=== PATIENT | male | born 1990 | race Caucasian/White ===

== ENCOUNTER 2021-08-26 18:39 | Emergency (ER) | payer OTHER, SELFPAY ==
[2021-08-26 18:53] VITALS: BP 146/98; PULSE 88; RESP 15; TEMP 36.4; O2SAT 98; BMI 33.0
--- NOTE | 2021-08-26 18:57 | DI.RAD.S_ITS ---
PROCEDURE: XR CHEST 1V INDICATIONS: chest pain TECHNIQUE: One view of the chest was acquired. COMPARISON: None. FINDINGS: Surgical changes and devices: None. Lungs and pleura: Lungs are clear. No pleural effusions or pneumothorax. Mediastinum: Mediastinal contours appear normal. Heart size is normal. Bones and chest wall: No suspicious bony lesions. Overlying soft tissues appear unremarkable. IMPRESSION: No acute process. Dictated by: Elia Johnson M.D. on 08/26/2021 at 19:24 Approved by: Elia Johnson M.D. on 08/26/2021 at 19:24
[2021-08-26 19:18] LABS: Add Manual Diff / Slide Review NO; Basophils Absolute Auto 100 /uL (0-100); Eosinophils Absolute Auto 300 /uL (0-450); Eosinophils Percent Auto 3.6 % (2-4); Hematocrit 41.2 % (41-53); Hemoglobin 14.3 g/dL (13.5-17.5); Lymphocytes Absolute Auto 2800 /uL (1100-4500); Lymphocytes Percent Auto 33.5 % (25-40); Mean Corpuscular HGB Conc 34.7 % (30-36); Mean Corpuscular Hemoglobin 31.2 PG (26-34); Mean Corpuscular Volume 89.9 fL (80-100); Monocytes Absolute Auto 700 /uL (0-900); Monocytes Percent Auto 8.2 % (3-14); Neutrophils Absolute Auto 4500 /uL (1500-7000); Neutrophils Percent Auto 53.7 % (50-75); Platelet Count 331 X10^3/uL (150-400); Red Blood Cell Count 4.59 X10^6/uL (4.5-5.9); Red Cell Distribution Width 13.9 % (11.6-14.8); White Blood Cell Count 8.4 X10^3/uL (4.5-11.0)
[2021-08-26 19:41] LABS: Alanine Aminotransferase 52 IU/L (<50); Albumin Globulin Ratio 1.5 (1.0-2.8); Alkaline Phosphatase 60 U/L (38-126); Aspartate Aminotransferase 40 IU/L (17-59); BUN Creatinine Ratio 12.2 (6-22); Bilirubin Total 1.6 mg/dL (0.2-1.3); Blood Urea Nitrogen 11 mg/dL (9-20); Calcium 8.9 mg/dL (8.4-10.2); Carbon Dioxide 29 mmol/L (22-32); Chloride 102 mmol/L (98-107); Creatine Kinase 174 U/L (55-170); Estimated Glomerular Filt Rate > 60.0 mL/min (>60); Globulin 3.3 g/dL (1.7-4.1); Glucose 91 mg/dL (70-100); HEMOLYSIS < 15 (0-50); Lipase 100 U/L (23-300); Magnesium 1.9 mg/dL (1.6-2.3); Potassium 3.6 mmol/L (3.4-5.1); Sodium 143 mmol/L (137-145); Total Protein 8.3 g/dL (6.3-8.2)
[2021-08-26 19:43] LABS: Troponin I < 0.012 ng/mL (0.01-0.034)
[2021-08-26 19:55] LABS: CKMB % Relative Index 0.3 % (1.5-5.0); Creatine Kinase MB 0.58 ng/mL (<2.37)
--- NOTE | 2021-08-26 20:07 | ED.GENADULT ---
HPI - General Adult General Chief complaint: Shortness of Breath/Dyspnea Stated complaint: SOB Time Seen by Provider: 08/26/21 19:59 Source: patient Mode of arrival: Ambulatory History of Present Illness HPI narrative: Patient is a 30-year-old male. Had an initial appointment with the local [place] [facility] couple days ago. This was a scheduled routine appointment to establish care. He told his provider that he has been having shortness of breath for the past several weeks. Apparently during this visit blood tests for ordered. A D-dimer was ordered. He was contacted and was told that his D-dimer was elevated that he needed to come to the emergency department for CT scan of his chest. He reports no fevers. No chest pain. No lower extremity swelling. No prior history of lung issues. He reports that he is just had shortness of breath specifically with exertion over the past several weeks. I do not have the lab tests that were ordered in front of me for review. Related Data Allergies Allergy/AdvReac Type Severity Reaction Status Date / Time No Known Drug Allergies Allergy Verified 08/26/21 18:53 Review of Systems Constitutional Constitutional: Denies fever(s) Cardiovascular Cardiovascular: Reports as per HPI and Reports system reviewed and no additional complaints, except as documented Respiratory Respiratory: Reports as per HPI and Reports system reviewed and no additional complaints, except as documented Integumentary/Breasts Skin/Breast: Reports system reviewed and no additional complaints, except as documented Neurologic Neurologic: Reports system reviewed and no additional complaints, except as documented Hematologic/Lymphatic On Anticoagulants: No Patient History Medical History Healthy adult tobacco type: smokeless tobacco alcohol intake frequency: a few times a week Substance Use Type: does not use Exam Initial Vital Signs Initial Vital Signs: Vital Signs Temperature 97.6 F 08/26/21 18:53 Pulse Rate 88 08/26/21 18:53 Respiratory Rate 15 08/26/21 18:53 Blood Pressure 146/98 H 08/26/21 18:53 Pulse Oximetry 98 08/26/21 18:53 HENMT Head: normal to inspection and normocephalic Resp Effort & Inspection: normal respiratory effort Auscultation: clear to auscultation bilaterally Cardio Rate: regular rate Rhythm: regular rhythm Skin General: no rashes or lesions noted Neuro General: patient alert, patient awake and moves all extremities Extrem General: normal to inspection and capillary refill normal Psych Appearance: grossly normal and well kempt Course Orders Ordered: ED Orders 08/26/21 19:55 COVID19 -Nasal swab/Pre-Proc Stat 08/26/21 20:08 CT angio chest PE protocol Stat Vital Signs Vital signs: Vital Signs - 8 hr 08/26/21 21:48 Pulse Rate 84 Respiratory Rate 16 Blood Pressure 136/81 Pulse Oximetry 98 Medical Decision Making Lab Data Lab results reviewed: Yes I reviewed the patient's lab results. Result diagrams: 08/26/21 19:00 08/26/21 19:15 Labs: Lab Results 08/26/21 08/26/21 08/26/21 Range/Units 19:00 19:15 19:55 WBC 8.4 (4.5-11.0) X10^3/uL RBC 4.59 (4.5-5.9) X10^6/uL Hgb 14.3 (13.5-17.5) g/dL Hct 41.2 (41-53) % MCV 89.9 (80-100) fL MCH 31.2 (26-34) PG MCHC 34.7 (30-36) % RDW 13.9 (11.6-14.8) % Plt Count 331 (150-400) X10^3/uL Neut % (Auto) 53.7 (50-75) % Lymph % (Auto) 33.5 (25-40) % [place] % (Auto) 8.2 (3-14) % Eos % (Auto) 3.6 (2-4) % Baso % (Auto) 1.0 (0-2) % Neut # (Auto) 4500 (6301-1618) /uL Lymph # (Auto) 2800 (9318-8739) /uL [place] # (Auto) 700 (0-900) /uL Eos # (Auto) 300 (0-450) /uL Baso # (Auto) 100 (0-100) /uL Sodium 143 (137-145) mmol/L Potassium 3.6 (3.4-5.1) mmol/L Chloride 102 (98-107) mmol/L Carbon Dioxide 29 (22-32) mmol/L BUN 11 (9-20) mg/dL Creatinine 0.90 (0.66-1.25) mg/dL Estimated GFR > 60.0 (>60) mL/min BUN/Creatinine Ratio 12.2 (6-22) Glucose 91 (70-100) mg/dL Calcium 8.9 (8.4-10.2) mg/dL Magnesium 1.9 (1.6-2.3) mg/dL Total Bilirubin 1.6 H (0.2-1.3) mg/dL AST 40 (17-59) IU/L ALT 52 H (<50) IU/L Alkaline Phosphatase 60 (38-126) U/L Total Creatine Kinase 174 H (55-170) U/L CK-MB (CK-2) 0.58 (<2.37) ng/mL CK-MB (CK-2) Rel Index 0.3 L (1.5-5.0) % Troponin I < 0.012 (0.01-0.034) ng/mL Total Protein 8.3 H (6.3-8.2) g/dL Albumin 5.0 (3.5-5.0) g/dL Globulin 3.3 (1.7-4.1) g/dL Albumin/Globulin Ratio 1.5 (1.0-2.8) Lipase 100 (23-300) U/L SARS-CoV-2 (PCR) Negative (Negative) Imaging Data Chest x-ray: Radiologist's Impression: [address] [address] XRay Report Signed Patient: Abelino Betancourt MR#: [id number] : 1990 Acct:[id number] Age/Sex: 30 / M Date of Service: 08/26/21 Loc: ED Accession Number: [id number] ?? Procedure: XR chest 1V Ordering Provider: Dhaval Butt D.O. PROCEDURE:? XR CHEST 1V ? INDICATIONS:? chest pain ? TECHNIQUE:? One view of the chest was acquired.? ? COMPARISON:? None. ? FINDINGS:? ? Surgical changes and devices:? None.? ? Lungs and pleura:? Lungs are clear.? No pleural effusions or pneumothorax.? ? Mediastinum:? Mediastinal contours appear normal.? Heart size is normal.? ? Bones and chest wall:? No suspicious bony lesions.? Overlying soft tissues appear unremarkable.? ? IMPRESSION:? No acute process. ? ? Dictated by: Elia Johnson M.D. on 08/26/2021 at 19:24 ? ? Approved by: Elia Johnson M.D. on 08/26/2021 at 19:24?? CT scan - chest: Radiologist's Impression: [address] [address] [address] Scan Report Signed Patient: Abelino Betancourt MR#: [id number] : 1990 Acct:[id number] Age/Sex: 30 / M Date of Service: 08/26/21 Loc: ED Accession Number: [id number] ?? Procedure: CT angio chest PE protocol Ordering Provider: Dhaval Butt D.O. PROCEDURE:? CT ANGIO CHEST PE PROTOCOL ? INDICATIONS:? elevated D dimer with SOB ? TECHNIQUE:? After the administration of intravenous contrast, 2 mm thick sections acquired from the pulmonary apices to the posterior costophrenic angles.? 3-dimensional maximum intensity projection (MIP) coronal and sagittal reformats were then acquired through the thorax.? For radiation dose reduction, the following was used:? automated exposure control, adjustment of mA and/or kV according to patient size.? ? COMPARISON:? [facility], CR, XR CHEST 1V, 08/26/2021, 19:06. ? FINDINGS:? Image quality:? Excellent.? ? Pulmonary arteries:? Pulmonary arteries are normal in size, and demonstrate no intraluminal filling defects to suggest central pulmonary embolism.? ? Lungs and pleura:? There is mild dependent atelectasis.? No acute consolidation.? No pleural effusions or pneumothorax.? Central and peripheral airways are patent.? ? Mediastinum:? Heart size is normal, without pericardial effusion.? No mediastinal or hilar adenopathy.? Thoracic aorta is normal in caliber and enhancement.? Esophagus is normal in caliber, without hiatal hernia.? ? Bones and chest wall:? No suspicious bony lesions.? Ribs and thoracic spine appear intact throughout.? The visualized thyroid demonstrates no discrete nodules.? No axillary or supraclavicular adenopathy.? ? Abdomen:? Visualized upper abdominal solid organs appear normal in the early arterial phase of enhancement.? ? IMPRESSION:? ? 1. No evidence of pulmonary embolism. ? 2. No acute airspace consolidation. ? ? Dictated by: Nickolas Horne M.D. on 08/26/2021 at 21:30 ? ? Approved by: Nickolas Horne M.D. on 08/26/2021 at 21:32? [facility] Narrative Medical decision making narrative: CT scan of the chest shows no acute pathology specifically no pulmonary embolism. There is no indication for any antibiotics. He is not having any chest pain. He is not clinically in heart failure. I did discuss the findings of the CT scan with him. Informed him that he needed to contact his primary doctor to discuss any potential further workup to include pulmonary function testing. He was given return precautions. He expressed understanding and agreement. Discharge Plan Departure Patient Disposition: Home Clinical Impression: Shortness of Breath Instructions: DI for Shortness of Breath Activity Restrictions/Additional Instructions: The CT scan today is reassuring and no signs of any blood clots. I do recommend you contact your primary doctor for further workup to discuss the indications for pulmonary function test. Return to the emergency department for any new or worsening symptoms.
--- NOTE | 2021-08-26 20:08 | DI.CT.S_ITS ---
PROCEDURE: CT ANGIO CHEST PE PROTOCOL INDICATIONS: elevated D dimer with SOB TECHNIQUE: After the administration of intravenous contrast, 2 mm thick sections acquired from the pulmonary apices to the posterior costophrenic angles. 3-dimensional maximum intensity projection (MIP) coronal and sagittal reformats were then acquired through the thorax. For radiation dose reduction, the following was used: automated exposure control, adjustment of mA and/or kV according to patient size. COMPARISON: [facility], CR, XR CHEST 1V, 08/26/2021, 19:06. FINDINGS: Image quality: Excellent. Pulmonary arteries: Pulmonary arteries are normal in size, and demonstrate no intraluminal filling defects to suggest central pulmonary embolism. Lungs and pleura: There is mild dependent atelectasis. No acute consolidation. No pleural effusions or pneumothorax. Central and peripheral airways are patent. Mediastinum: Heart size is normal, without pericardial effusion. No mediastinal or hilar adenopathy. Thoracic aorta is normal in caliber and enhancement. Esophagus is normal in caliber, without hiatal hernia. Bones and chest wall: No suspicious bony lesions. Ribs and thoracic spine appear intact throughout. The visualized thyroid demonstrates no discrete nodules. No axillary or supraclavicular adenopathy. Abdomen: Visualized upper abdominal solid organs appear normal in the early arterial phase of enhancement. IMPRESSION: 1. No evidence of pulmonary embolism. 2. No acute airspace consolidation. Dictated by: Nickolas Horne M.D. on 08/26/2021 at 21:30 Approved by: Nickolas Horne M.D. on 08/26/2021 at 21:32
[2021-08-26 20:10] LABS: COVID19 -Nasal RAPID Negative (Negative)
[2021-08-26 21:48] VITALS: BP 136/81; PULSE 84; RESP 16; O2SAT 98
== END 2021-08-26 21:49 | disposition home or self-care (01) ==
PROVIDERS: Emergency Provider Emergency Medicine
DX: R06.02 Shortness of breath (principal); R79.1 Abnormal coagulation profile; R03.0 Elevated blood-pressure reading, without diagnosis of hypertension; Z20.822 Contact with and (suspected) exposure to COVID-19
CPT/HCPCS: 71045; 71275; 80053; 82550; 82553; 83690; 83735; 84484; 85025; 87635; 93005; 93010; 99283; 99284; C9803; Q9967

== ENCOUNTER 2021-09-04 18:10 | Emergency (ER) | payer OTHER, SELFPAY ==
[2021-09-04 18:15] VITALS: BP 174/93; PULSE 91; RESP 18; TEMP 36.9; O2SAT 100; BMI 46.1
--- NOTE | 2021-09-04 18:20 | DI.RAD.S_ITS ---
PROCEDURE: XR CHEST 1V INDICATIONS: chest pain TECHNIQUE: One view of the chest was acquired. COMPARISON: [facility], CR, XR CHEST 1V, 08/26/2021, 19:06. FINDINGS: Surgical changes and devices: None. Lungs and pleura: Mildly increased bronchovascular markings in bilateral hilar region are seen with mild bronchial wall thickening. No focal infiltrate. No pleural effusions or pneumothorax. Mediastinum: Mediastinal contours appear normal. Heart size is normal. Bones and chest wall: No suspicious bony lesions. Overlying soft tissues appear unremarkable. IMPRESSION: Suggestion of mild reactive airway disease such as bronchitis or asthma. No focal infiltrate, pleural effusion or pneumothorax. Dictated by: Jameson Davis M.D. on 09/04/2021 at 19:02 Approved by: Jameson Davis M.D. on 09/04/2021 at 19:02
[2021-09-04 18:52] LABS: Add Manual Diff / Slide Review NO; Basophils Absolute Auto 100 /uL (0-100); Basophils Percent Auto 1.2 % (0-2); Eosinophils Absolute Auto 400 /uL (0-450); Eosinophils Percent Auto 5.5 % (2-4); Hematocrit 40.2 % (41-53); Hemoglobin 13.7 g/dL (13.5-17.5); Lymphocytes Absolute Auto 2600 /uL (1100-4500); Lymphocytes Percent Auto 35.2 % (25-40); Mean Corpuscular HGB Conc 34.2 % (30-36); Mean Corpuscular Hemoglobin 30.5 PG (26-34); Mean Corpuscular Volume 89.2 fL (80-100); Monocytes Absolute Auto 700 /uL (0-900); Monocytes Percent Auto 9.2 % (3-14); Neutrophils Absolute Auto 3600 /uL (1500-7000); Neutrophils Percent Auto 48.9 % (50-75); Platelet Count 370 X10^3/uL (150-400); Red Blood Cell Count 4.51 X10^6/uL (4.5-5.9); Red Cell Distribution Width 13.5 % (11.6-14.8); White Blood Cell Count 7.4 X10^3/uL (4.5-11.0)
--- NOTE | 2021-09-04 18:55 | ED_ITS ---
HPI - Chest Pain <LOY Cage - Last Filed: 09/04/21 20:16> General Chief Complaint: Chest Pain Stated Complaint: chest pain, short of breath Time Seen by Provider: 09/04/21 18:16 History of Present Illness HPI narrative: 30-year-old male presents to the emergency department complaining of increase in frequency of palpitations, shortness of breath with exertion, chest pain, and tachycardia. Patient was seen in the emergency department on 08/26/2021 for the similar symptoms after he had an elevated D-dimer at his primary care provider's office. He had a CTA chest at that time which was negative for pulmonary embolism, and no evidence of airspace consolidation. Patient denies any recent fever, he does endorse having a history of allergies since moving to the [facility] from [place] recently and he currently takes omeprazole, Zyrtec, Mucinex for his symptoms. Patient endorses having dizziness with exertion and palpitations and these symptoms have been ongoing for about a month He says his dizziness and palpitations occur at rest and with activity, sometimes when he is lying in bed. He says he has shortness of breath and palpitations with simple exertion like walking to his truck . He says this is out of the ordinary for him and his resting heart rate is usually in the 40s to 50s. He denies any significant cardiac history, he denies any family history of cardiac disease or sudden cardiac at a young age. Patient also reports that he has had some mild swelling in both of his hands after he has been standing for long period of time but denies any swelling in his lower extremities. Patient reports he monitors his heart rate on his watch and his heart rate gets up to 140s to 150s when knee is having these palpitations. Patient reports he drinks approximately 2 cups of coffee a day, he does not do any drugs, he denies smoking cigarettes. Related Data Allergies Allergy/AdvReac Type Severity Reaction Status Date / Time No Known Drug Allergies Allergy Verified 08/26/21 18:53 Review of Systems <OLY Cage - Last Filed: 09/04/21 20:16> Review of Systems Narrative: General: denies fever, chills Head/Neck: denies headache, neck pain, endorses occasional dizziness Eyes: denies visual changes, eye pain Cardio: Endorsing occasional chest pain and palpitations currently without any of those symptoms Respiratory: denies shortness of breath, cough GI: denies abdominal pain, nausea, vomiting, or diarrhea, patient endorses heartburn which is normal for him, he takes omeprazole daily : denies dysuria, hematuria MSK: denies joint pain, muscle weakness Skin: denies rash, itching Neuro: denies numbness, tingling Patient History <LOY Cage - Last Filed: 09/04/21 20:16> Medical History Healthy adult tobacco type: smokeless tobacco alcohol intake frequency: a few times a week Substance Use Type: does not use Exam <LOY Cage - Last Filed: 09/04/21 20:16> Narrative Exam Narrative: Independently reviewed vitals signs and nursing notes. General: Awake, alert, nontoxic, no cardiorespiratory distress Head/Neck: Atraumatic, neck full range of motion Eyes: EOMI, conjunctiva normal Nose: nares patent, no rhinorrhea Mouth/Throat: moist mucus membranes, no oral lesions Cardio: Regular rate and rhythm, no peripheral edema, S1 and S2 without any additional sounds, no murmurs rubs or gallops Respiratory: respirations unlabored without wheezing, stridor, or rales. No retractions. GI: Abdomen soft, nontender MSK: Moves all extremities, neurovascularly intact Skin: Normal capillary refill, no rash Neuro: Normal speech and cognition, normal gait Initial Vital Signs Initial Vital Signs: Vital Signs Temperature 98.5 F 09/04/21 18:15 Pulse Rate 91 H 09/04/21 18:15 Respiratory Rate 18 09/04/21 18:15 Blood Pressure 174/93 H 09/04/21 18:15 Pulse Oximetry 100 09/04/21 18:15 <Papa Diana DO - Last Filed: 09/05/21 01:47> Initial Vital Signs Initial Vital Signs: Vital Signs Temperature 98.5 F 09/04/21 18:15 Pulse Rate 91 H 09/04/21 18:15 Respiratory Rate 18 09/04/21 18:15 Blood Pressure 174/93 H 09/04/21 18:15 Pulse Oximetry 100 09/04/21 18:15 Course <LOY Cage - Last Filed: 09/04/21 20:16> Orders Ordered: ED Orders 09/04/21 18:20 XR chest 1V Stat EKG-12 Lead Stat 09/04/21 18:43 Complete Blood Count AUTO DIFF Stat Comprehensive Metabolic Panel Stat D Dimer Stat Lipase Stat Magnesium Stat Partial Thromboplastin Time Stat Prothrombin Time INR Stat Troponin & CK Cardiac Panel Stat Vital Signs Vital signs: Vital Signs - 8 hr 09/04/21 18:15 09/04/21 20:13 Temperature 98.5 F Pulse Rate 91 H 80 Respiratory Rate 18 Blood Pressure 174/93 H 137/66 Pulse Oximetry 100 98 <Papa Diana DO - Last Filed: 09/05/21 01:47> Orders Ordered: ED Orders 09/04/21 18:20 XR chest 1V Stat EKG-12 Lead Stat 09/04/21 18:43 Complete Blood Count AUTO DIFF Stat Comprehensive Metabolic Panel Stat D Dimer Stat Lipase Stat Magnesium Stat Partial Thromboplastin Time Stat Prothrombin Time INR Stat Troponin & CK Cardiac Panel Stat Vital Signs Vital signs: Vital Signs - 8 hr 09/04/21 18:15 09/04/21 20:13 Temperature 98.5 F Pulse Rate 91 H 80 Respiratory Rate 18 Blood Pressure 174/93 H 137/66 Pulse Oximetry 100 98 MDM - Chest Pain <LOY Cage - Last Filed: 09/04/21 20:16> Lab Data Result diagrams: 09/04/21 18:43 09/04/21 18:43 Labs: Lab Results 09/04/21 09/04/21 09/04/21 Range/Units 18:43 18:43 18:43 WBC 7.4 (4.5-11.0) X10^3/uL RBC 4.51 (4.5-5.9) X10^6/uL Hgb 13.7 (13.5-17.5) g/dL Hct 40.2 L (41-53) % MCV 89.2 (80-100) fL MCH 30.5 (26-34) PG MCHC 34.2 (30-36) % RDW 13.5 (11.6-14.8) % Plt Count 370 (150-400) X10^3/uL Neut % (Auto) 48.9 L (50-75) % Lymph % (Auto) 35.2 (25-40) % Den[place] % (Auto) 9.2 (3-14) % Eos % (Auto) 5.5 H (2-4) % Baso % (Auto) 1.2 (0-2) % Neut # (Auto) 3600 (2853-8256) /uL Lymph # (Auto) 2600 (1128-6231) /uL [place] # (Auto) 700 (0-900) /uL Eos # (Auto) 400 (0-450) /uL Baso # (Auto) 100 (0-100) /uL PT 10.5 (10.1-12.7) SECONDS INR 1.0 (0.9-1.3) APTT 35 (26.4-36.2) SECONDS D-Dimer (<230) ng/mL Sodium 141 (137-145) mmol/L Potassium 4.2 (3.4-5.1) mmol/L Chloride 106 (98-107) mmol/L Carbon Dioxide 29 (22-32) mmol/L BUN 13 (9-20) mg/dL Creatinine 1.00 (0.66-1.25) mg/dL Estimated GFR > 60.0 (>60) mL/min BUN/Creatinine Ratio 13.0 (6-22) Glucose 114 H (70-100) mg/dL Calcium 9.1 (8.4-10.2) mg/dL Magnesium 2.1 (1.6-2.3) mg/dL Total Bilirubin 0.7 (0.2-1.3) mg/dL AST 34 (17-59) IU/L ALT 42 (<50) IU/L Alkaline Phosphatase 68 (38-126) U/L Total Creatine Kinase 86 (55-170) U/L CK-MB (CK-2) TNP CK-MB (CK-2) Rel Index TNP Troponin I < 0.012 (0.01-0.034) ng/mL Total Protein 7.5 (6.3-8.2) g/dL Albumin 4.4 (3.5-5.0) g/dL Globulin 3.1 (1.7-4.1) g/dL Albumin/Globulin Ratio 1.4 (1.0-2.8) Lipase 113 (23-300) U/L 01/13/22 Range/Units 18:43 WBC (4.5-11.0) X10^3/uL RBC (4.5-5.9) X10^6/uL Hgb (13.5-17.5) g/dL Hct (41-53) % MCV (80-100) fL MCH (26-34) PG MCHC (30-36) % RDW (11.6-14.8) % Plt Count (150-400) X10^3/uL Neut % (Auto) (50-75) % Lymph % (Auto) (25-40) % Den[place] % (Auto) (3-14) % Eos % (Auto) (2-4) % Baso % (Auto) (0-2) % Neut # (Auto) (8106-7675) /uL Lymph # (Auto) (7137-9816) /uL Denali # (Auto) (0-900) /uL Eos # (Auto) (0-450) /uL Baso # (Auto) (0-100) /uL PT (10.1-12.7) SECONDS INR (0.9-1.3) APTT (26.4-36.2) SECONDS D-Dimer < 200 (<230) ng/mL Sodium (137-145) mmol/L Potassium (3.4-5.1) mmol/L Chloride (98-107) mmol/L Carbon Dioxide (22-32) mmol/L BUN (9-20) mg/dL Creatinine (0.66-1.25) mg/dL Estimated GFR (>60) mL/min BUN/Creatinine Ratio (6-22) Glucose (70-100) mg/dL Calcium (8.4-10.2) mg/dL Magnesium (1.6-2.3) mg/dL Total Bilirubin (0.2-1.3) mg/dL AST (17-59) IU/L ALT (<50) IU/L Alkaline Phosphatase (38-126) U/L Total Creatine Kinase (55-170) U/L CK-MB (CK-2) CK-MB (CK-2) Rel Index Troponin I (0.01-0.034) ng/mL Total Protein (6.3-8.2) g/dL Albumin (3.5-5.0) g/dL Globulin (1.7-4.1) g/dL Albumin/Globulin Ratio (1.0-2.8) Lipase (23-300) U/L Imaging Data Chest x-ray: Radiologist's Impression: PROCEDURE:? XR CHEST 1V ? INDICATIONS:? chest pain ? TECHNIQUE:? One view of the chest was acquired.? ? COMPARISON:? [facility], CR, XR CHEST 1V, 08/26/2021, 19:06. ? FINDINGS:? ? Surgical changes and devices:? None.? ? Lungs and pleura:? Mildly increased bronchovascular markings in bilateral hilar region are seen with mild bronchial wall thickening.? No focal infiltrate.? No pleural effusions or pneumothorax.? ? Mediastinum:? Mediastinal contours appear normal.? Heart size is normal.? ? Bones and chest wall:? No suspicious bony lesions.? Overlying soft tissues appear unremarkable.? ? IMPRESSION:? Suggestion of mild reactive airway disease such as bronchitis or asthma.? No focal infiltrate, pleural effusion or pneumothorax. ? ? Dictated by: Jameson Davis M.D. on 09/04/2021 at 19:02 ? ? Approved by: Jameson Davis M.D. on 09/04/2021 at 19:02 ? ECG Data Interpretation: EKG reviewed by myself and Dr. Diana reveals normal sinus rhythm at [83] bpm with regular axis and intervals. OR 164 milliseconds, QRS 92 milliseconds, QTC 413 milliseconds with normal axis without STEMI, ST segment changes, arrhythmia, or acute ischemic changes. MDM Narrative Medical decision making narrative: 30-year-old male presents to the emergency department with complaint of shortness of breath and palpitations which have been ongoing and intermittent for 1 month. Patient was establishing care with Dr. Michaels a week ago who kendrick labs and found an elevated D-dimer of 2.4, [facility] of breath and had a CTA chest completed without any evidence of pulmonary embolism and without any airspace consolidation. Today patient reports that his symptoms are ongoing, he has occasional shortness of breath with simple exertion like walking to his truck or across the room and reports his heart rate goes up to the 140s which he tracks on his watch. He says his baseline heart rate is usually between 40 and 50. He has chest pain and dizziness during these episodes and he reports that his heart feels like it is racing. He is not experiencing these symptoms currently. He does not have any significant family history of cardiac disease, he does not have any history of cardiac disease and is without any risk factors. He has had pulmonary function tests which have been normal, he complains of seasonal allergies which are worse here in the [place] then in [place] where he recently moved from. For this he takes Mucinex, Zyrtec and has used albuterol occasionally with this shortness of breath episode which was not helpful. Patient has these symptoms at rest as well, his symptoms at rest include palpitations and dizziness occasionally with chest pain. Patient denies any radiation of this pain, he denies any nausea vomiting, he is having bright red blood per rectum but this has been going for approximately 1 month and he has an endoscopy and colonoscopy scheduled and recently completed a course of antibiotics for E coli infection in his stool. He denies any rectal pain, he is not anemic, he does not appear dehydrated. 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 Patient's workup today is grossly unremarkable, x-ray shows a normal cardiac silhouette with suggestion of mild reactive airway disease such as bronchitis or asthma. Patient does not have any focal infiltrates, cardiomegaly, pleural effusions or pneumothorax. Patient's lab work is also grossly unremarkable, patient's D-dimer was negative, troponin was negative, cardiac enzymes are negative. EKG shows normal sinus rhythm without any ectopy, irregularity, or ST changes, or additional beats. His workup today does not reflect a cardiac cause to his complaint. I recommend he follow up with cardiology and his primary care provider for possible stress test, echocardiogram, Holter monitoring. Patient is appropriate and amenable to discharge home. Vital signs are stable on repeat examination is unremarkable. Patient has been informed of results. Patient has been given strict return to ER precautions for any new or worsening symptoms. Patient understands to follow up closely with outpatient providers as instructed. Patient understands plan and agrees to discharge home. All questions and concerns answered at this time. Patient is appropriate and amenable to discharge home. Vital signs are stable on repeat examination is unremarkable. Patient has been informed of results. Patient has been given strict return to ER precautions for any new or worsening symptoms. Patient understands to follow up closely with outpatient providers as instructed. Patient understands plan and agrees to discharge home. All questions and concerns answered at this time. <Papa Diana DO - Last Filed: 09/05/21 01:47> Lab Data Labs: Lab Results 09/04/21 09/04/21 09/04/21 Range/Units 18:43 18:43 18:43 WBC 7.4 (4.5-11.0) X10^3/uL RBC 4.51 (4.5-5.9) X10^6/uL Hgb 13.7 (13.5-17.5) g/dL Hct 40.2 L (41-53) % MCV 89.2 (80-100) fL MCH 30.5 (26-34) PG MCHC 34.2 (30-36) % RDW 13.5 (11.6-14.8) % Plt Count 370 (150-400) X10^3/uL Neut % (Auto) 48.9 L (50-75) % Lymph % (Auto) 35.2 (25-40) % Denali % (Auto) 9.2 (3-14) % Eos % (Auto) 5.5 H (2-4) % Baso % (Auto) 1.2 (0-2) % Neut # (Auto) 3600 (5691-5730) /uL Lymph # (Auto) 2600 (0236-8366) /uL Denali # (Auto) 700 (0-900) /uL Eos # (Auto) 400 (0-450) /uL Baso # (Auto) 100 (0-100) /uL PT 10.5 (10.1-12.7) SECONDS INR 1.0 (0.9-1.3) APTT 35 (26.4-36.2) SECONDS D-Dimer (<230) ng/mL Sodium 141 (137-145) mmol/L Potassium 4.2 (3.4-5.1) mmol/L Chloride 106 (98-107) mmol/L Carbon Dioxide 29 (22-32) mmol/L BUN 13 (9-20) mg/dL Creatinine 1.00 (0.66-1.25) mg/dL Estimated GFR > 60.0 (>60) mL/min BUN/Creatinine Ratio 13.0 (6-22) Glucose 114 H (70-100) mg/dL Calcium 9.1 (8.4-10.2) mg/dL Magnesium 2.1 (1.6-2.3) mg/dL Total Bilirubin 0.7 (0.2-1.3) mg/dL AST 34 (17-59) IU/L ALT 42 (<50) IU/L Alkaline Phosphatase 68 (38-126) U/L Total Creatine Kinase 86 (55-170) U/L CK-MB (CK-2) TNP CK-MB (CK-2) Rel Index TNP Troponin I < 0.012 (0.01-0.034) ng/mL Total Protein 7.5 (6.3-8.2) g/dL Albumin 4.4 (3.5-5.0) g/dL Globulin 3.1 (1.7-4.1) g/dL Albumin/Globulin Ratio 1.4 (1.0-2.8) Lipase 113 (23-300) U/L 09/04/21 Range/Units 18:43 WBC (4.5-11.0) X10^3/uL RBC (4.5-5.9) X10^6/uL Hgb (13.5-17.5) g/dL Hct (41-53) % MCV (80-100) fL MCH (26-34) PG MCHC (30-36) % RDW (11.6-14.8) % Plt Count (150-400) X10^3/uL Neut % (Auto) (50-75) % Lymph % (Auto) (25-40) % Denali % (Auto) (3-14) % Eos % (Auto) (2-4) % Baso % (Auto) (0-2) % Neut # (Auto) (1500-2340) /uL Lymph # (Auto) (0375-1845) /uL Denali # (Auto) (0-900) /uL Eos # (Auto) (0-450) /uL Baso # (Auto) (0-100) /uL PT (10.1-12.7) SECONDS INR (0.9-1.3) APTT (26.4-36.2) SECONDS D-Dimer < 200 (<230) ng/mL Sodium (137-145) mmol/L Potassium (3.4-5.1) mmol/L Chloride (98-107) mmol/L Carbon Dioxide (22-32) mmol/L BUN (9-20) mg/dL Creatinine (0.66-1.25) mg/dL Estimated GFR (>60) mL/min BUN/Creatinine Ratio (6-22) Glucose (70-100) mg/dL Calcium (8.4-10.2) mg/dL Magnesium (1.6-2.3) mg/dL Total Bilirubin (0.2-1.3) mg/dL AST (17-59) IU/L ALT (<50) IU/L Alkaline Phosphatase (38-126) U/L Total Creatine Kinase (55-170) U/L CK-MB (CK-2) CK-MB (CK-2) Rel Index Troponin I (0.01-0.034) ng/mL Total Protein (6.3-8.2) g/dL Albumin (3.5-5.0) g/dL Globulin (1.7-4.1) g/dL Albumin/Globulin Ratio (1.0-2.8) Lipase (23-300) U/L Discharge Plan Departure Patient Disposition: Home Clinical Impression: Palpitations, Shortness of Breath, Atypical chest pain Instructions: DI for Shortness of Breath Activity Restrictions/Additional Instructions: *You have been diagnosed with shortness of breath, palpitations, and atypical chest pain. Your workup today is reassuring that your symptoms are most likely not a life-threatening condition however they are concerning that they keep recurring. Please follow-up with Dr. Castro with cardiology 1st and see if you can get an appointment soon. I have also referred you to Dr. Alvarez out of [facility]. In terms of your allergies, please keep doing which her doing for your symptoms it seems to be helping. Your blood counts are normal, there is no sign of heart strain, you may have a mild bronchitis or reactive airway disease which I would attribute to your allergies. Since albuterol is not helpful than that is most likely not going to help this palpitation problem either, it will increase your heart rate. When these symptoms occur please try and take slow deep breaths and slow down your heart rate. Please follow-up with Dr. Michaels, and you GI doctors for your colonoscopy and endoscopy, and cardiology. Dr. Michaels may be able to order you a stress test and Holter monitor which might be helpful in capturing 1 of these rhythms for the administrative medical director. The administrative medical director will be able to order an echocardiogram which may be able to find something we can not by other testing measures. I hope that between all of this follow-up you will find a reason for your symptoms. Thank you for trusting us with your care, thank you for coming in with your complaint, I will send your chart to those physicians and hopefully somebody can help solve this problem. Wishing you luck. *What to do: *Please continue to take your regular medications as directed. [ ] New medication prescriptions sent to your pharmacy: [ ] [ ] New medication written as a paper prescription [ x] No new medications given *Please follow up with your primary care provider in 2-3 days, call for an appointment. Let them know you were seen in the Emergency Department and that we ask that you be seen in follow up. We will electronically transmit a record of today's note if your PCP is in our system *If you do not have a primary care provider please contact the [facility] Resource line at [phone]. They will ask some questions about your medical history and help get you set up with a doctor in the community. *Return to Emergency Department if you should have any new, worsening or concerning symptoms, such as [fever greater than 101F, chills, worsening pain, persistent vomiting or other bothersome symptoms] Referrals: Hermes Alvarez MD [Physician] - Benjamín Castro MD [Physician] - 5-7 days <Papa Diana DO - Last Filed: 09/05/21 01:47> Cosign ED Attending Moiseature Attestation: I was immediately available in the department for consultation. This documentation has been reviewed and I agree with assessment and plan. Supervised by Papa Diana DO
[2021-09-04 19:05] LABS: Prothrombin Time 10.5 SECONDS (10.1-12.7)
[2021-09-04 19:08] LABS: PTT Partial Thromboplastin Tim 35 SECONDS (26.4-36.2)
[2021-09-04 19:10] LABS: Alanine Aminotransferase 42 IU/L (<50); Albumin 4.4 g/dL (3.5-5.0); Albumin Globulin Ratio 1.4 (1.0-2.8); Alkaline Phosphatase 68 U/L (38-126); Aspartate Aminotransferase 34 IU/L (17-59); Bilirubin Total 0.7 mg/dL (0.2-1.3); Blood Urea Nitrogen 13 mg/dL (9-20); Calcium 9.1 mg/dL (8.4-10.2); Carbon Dioxide 29 mmol/L (22-32); Chloride 106 mmol/L (98-107); Creatine Kinase 86 U/L (55-170); Estimated Glomerular Filt Rate > 60.0 mL/min (>60); Globulin 3.1 g/dL (1.7-4.1); Glucose 114 mg/dL (70-100); HEMOLYSIS < 15 (0-50); Lipase 113 U/L (23-300); Magnesium 2.1 mg/dL (1.6-2.3); Potassium 4.2 mmol/L (3.4-5.1); Sodium 141 mmol/L (137-145); Total Protein 7.5 g/dL (6.3-8.2)
[2021-09-04 19:22] LABS: Troponin I < 0.012 ng/mL (0.01-0.034)
[2021-09-04 19:40] LABS: D Dimer < 200 ng/mL (<230)
[2021-09-04 20:13] VITALS: BP 137/66; PULSE 80; O2SAT 98
== END 2021-09-04 20:14 | disposition home or self-care (01) ==
PROVIDERS: Emergency Medicine; Emergency Provider Nurse Practitioner Critical Care Medicine
DX: R00.2 Palpitations (principal); R06.02 Shortness of breath; R07.89 Other chest pain; F17.290 Nicotine dependence, other tobacco product, uncomplicated
CPT/HCPCS: 36415; 71045; 80053; 82550; 83690; 83735; 84484; 85025; 85379; 85610; 85730; 93005; 93010; 99284